=== PATIENT | male | born 1975 | race Caucasian/White ===

== ENCOUNTER 2016-11-06 10:41 | Emergency (ER) | payer SELFPAY ==
[2016-11-06] MEDS ORDERED: CATAPRES PO ONE (11:22)
[2016-11-06 11:28] LABS: Basophils % (Auto) 0.6 % (0.0-1.8); Eosinophils % (Auto) 0.7 % (0.0-4.3); Hematocrit 41.4 % (35.5-45.6); Hemoglobin 13.7 gm/dl (11.8-15.2); Mean Corpuscular HGB Conc 33 % (32-34); Mean Corpuscular Hemoglobin 28 pg (28-32); Mean Corpuscular Volume 86 fl (84-94); Platelet Count 252 K/mm3 (140-440); Red Blood Count 4.84 M/mm3 (3.65-5.03); Red Cell Distribution Width 15.2 % (13.2-15.2); White Blood Count 8.4 K/mm3 (4.5-11.0)
--- NOTE | 2016-11-06 11:37 | Emergency Department Report ---
HPI - General Chief Complaint: Overdose Time Seen by Provider: 11/06/16 11:21 - HPI HPI: This is a 40-year-old male who admits to cocaine use at 3 AM this morning approximately 9 hours ago, he presents to ED with severe headache. He states his headache is 10 out of 10, states that his pain is accompanied by nausea, dizziness and located mostly in the back of his head. He consumed 5 g of cocaine around 3 AM when the headache started, he stated home hoping that it would get better but it kept getting worse so he presented to the ED. Patient has not taking any medication at home for his symptoms. He denies any exacerbating factors. He denies any alleviating factors. -: Gradual Location: Back of head Radiation: Catholic area Migration to: no migration Severity scale (0 -10): 10 Quality: sharp Improves With: nothing Associated Symptoms: nausea, dizziness. ED Past Medical Hx - Past Medical History Previous Medical History?: Yes Hx Psychiatric Treatment: Yes (Bipolar) - Surgical History Past Surgical History?: No - Social History Smoking Status: Unknown if ever smoked Substance Use Type: Alcohol, Cocaine - Medications Home Medications: Home Medications Medication Instructions Recorded Confirmed Last Taken Type No Known Home Medications [No 11/06/16 11/06/16 Unknown History Reported Home Medications] ED Review of Systems ROS: Stated complaint: DRUG OVERDOSE Other details as noted in HPI Physical Exam - Physical Exam Vital Signs: Vital Signs 11/06/16 10:53 Temperature 98 F Pulse Rate 82 Respiratory 16 Rate Blood Pressure 145/104 O2 Sat by Pulse 100 Oximetry Physical Exam: - Physical Exam - General Limitations: No Limitations General appearance: alert, in no apparent distress, - Head Head exam: Present: atraumatic, normocephalic - Eye Eye exam: Present: normal appearance - ENT ENT exam: Present: mucous membranes moist - Neck Neck exam: Present: normal inspection - Respiratory Respiratory exam: Present: normal lung sounds bilaterally. Absent: respiratory distress - Cardiovascular Cardiovascular Exam: Present: normal rhythm, normal rate. Absent: systolic murmur, diastolic murmur, rubs, gallop - GI/Abdominal GI/Abdominal exam: Present: soft, normal bowel sounds - Extremities Exam Extremities exam: Present: normal inspection - Back Exam Back exam: Present: normal inspection - Neurological Exam Neurological exam: Present: alert, oriented X3 - Psychiatric Psychiatric exam: normal affect and mood but denies suicidal ideations, denies homicidal ideation - Skin Skin exam: Present: warm, dry, intact, normal color. Absent: rash ED Course Vital Signs 11/06/16 10:53 Temperature 98 F Pulse Rate 82 Respiratory 16 Rate Blood Pressure 145/104 O2 Sat by Pulse 100 Oximetry - Reevaluation(s) Reevaluation #1: 11/06/16 16:47 Spoke with patient he agreed to psych consultation, but refuses inpatient rehabilitation, was referred to outpatient treatment. Patient not sure if he really wants detox at this time we'll consider to outpatient rehabilitation/ treatment. A DC patient continued to deny homicidal ideations, suicidal ideations. ED Medical Decision Making - Lab Data Result diagrams: 11/06/16 11:18 11/06/16 11:18 Critical care attestation.: If time is entered above; I have spent that time in minutes in the direct care of this critically ill patient, excluding procedure time. ED Disposition Clinical Impression: Cocaine abuse Disposition: DC-01 TO HOME OR SELFCARE Is pt being admited?: No Does the pt Need Aspirin: No Condition: Stable Instructions: Cocaine Abuse (ED), Polysubstance Abuse (ED) Referrals: PRIMARY CARE, [Primary Care Provider] - 3-5 Days
[2016-11-06 11:49] LABS: Anion Gap 22 mmol/L; Blood Urea Nitrogen 13 mg/dL (9-20); Calcium 8.9 mg/dL (8.4-10.2); Carbon Dioxide 22 mmol/L (22-30); Chloride 100.4 mmol/L (98-107); Glucose 84 mg/dL (75-100); Potassium 4.1 mmol/L (3.6-5.0); Sodium 140 mmol/L (137-145)
--- NOTE | 2016-11-06 12:26 | Cat Scan Report ---
CT HEAD WITHOUT CONTRAST: HISTORY: Severe headache. Serial contiguous axial images were obtained through the cranium. Intravenous contrast material was not administered. The ventricles are normal in size and appearance. There is no mass effect or midline shift. No areas of abnormally increased or decreased attenuation are seen. No mass lesion is seen. The mastoid air cells and visualized portions of the sinuses are normal. IMPRESSION: Cranial CT scan within normal limits.
[2016-11-06 13:50] LABS: Bilirubin,Urine NEG (Negative); Blood,Urine NEG (Negative); Ketones,Urine NEG (Negative); Leukocyte Esterase,Urine NEG (Negative); Mucus,Urine FEW /HPF; Nitrite,Urine NEG (Negative); Protein,Urine <15 mg/dL mg/dL (Negative); Urobilinogen,Urine < 2.0 mg/dL (<2.0)
[2016-11-06 14:33] LABS: RBC,Urine < 1.0 /HPF (0.0-6.0)
[2016-11-06 18:14] VITALS: BP 135/77
== END 2016-11-06 17:40 | disposition home or self-care (01) ==
LOC: ED 10:41
DX: F14.10 Cocaine abuse, uncomplicated (principal); R51 Headache; R11.0 Nausea; R42 Dizziness and giddiness; F31.9 Bipolar disorder, unspecified
CPT/HCPCS: 36415; 70450; 80048; 81001; 84484; 85025; 93005; 93010

== ENCOUNTER 2017-01-09 09:10 | Emergency (ER) | payer SELFPAY ==
[2017-01-09 10:40] LABS: Basophils % (Auto) 0.6 % (0.0-1.8); Eosinophils % (Auto) 1.7 % (0.0-4.3); Hematocrit 46.3 % (35.5-45.6); Hemoglobin 15.2 gm/dl (11.8-15.2); Mean Corpuscular HGB Conc 33 % (32-34); Mean Corpuscular Hemoglobin 28 pg (28-32); Mean Corpuscular Volume 86 fl (84-94); Platelet Count 223 K/mm3 (140-440); Red Blood Count 5.36 M/mm3 (3.65-5.03); Red Cell Distribution Width 14.9 % (13.2-15.2)
[2017-01-09 11:01] LABS: Anion Gap 16 mmol/L; BUN/Creatinine Ratio 9; Blood Urea Nitrogen 10 mg/dL (9-20); Calcium 9.1 mg/dL (8.4-10.2); Carbon Dioxide 29 mmol/L (22-30); Chloride 99.4 mmol/L (98-107); Glucose 94 mg/dL (75-100); Potassium 4.9 mmol/L (3.6-5.0); Sodium 139 mmol/L (137-145)
[2017-01-09] MEDS ORDERED: CATAPRES ONE (14:02)
[2017-01-09] MEDS ORDERED: NACL 0.9% 1000 ML 1,000 ML IV ONE (14:16)
--- NOTE | 2017-01-09 14:25 | Emergency Department Report ---
- General Chief Complaint: Dizziness Stated Complaint: DIZZY Time Seen by Provider: 01/09/17 14:00 Source: patient, old records reviewed (when patient was here in October admitted to cocaine abuse) Mode of arrival: Stretcher Limitations: No Limitations - History of Present Illness Initial Comments: 41-year-old male with past history of bipolar disorder presents to the hospital complaints of URI symptoms with syncopal episode today. For the past 4 days patient has had generalized body aches, frontal sinus headache, nasal congestion , occasional cough, and fevers. Decreased appetite reported by patient states he is trying to eat and drink fluids appropriately. Patient thought he was getting better yesterday and no longer felt feverish. Today patient took some DayQuil and got on a bus. While in a bolus he began to feel nauseated and lightheaded. When he got up to sit down and had a syncopal episode. Patient complains of frontal sinus pain, chest pain with coughing, but denies shortness of breath, edema, recent travel, calf tenderness, or posterior or parietal headache. - Related Data Previous Rx's Medication Instructions Recorded Last Taken Type Doxycycline [Vibramycin CAP] 100 mg PO Q12HR #14 capsule 01/09/17 Unknown Rx Sodium Chloride [Saline Nasal 1 - 2 spray NS PRN PRN #1 bottle 01/09/17 Unknown Rx [place]] Allergies Allergy/AdvReac Type Severity Reaction Status Date / Time No Known Allergies Allergy Unverified 11/06/16 11:02 ED Review of Systems ROS: Stated complaint: DIZZY Other details as noted in HPI Comment: All other systems reviewed and negative Other: Constitutional: as per hpi Eyes: No eye pain visual changes or discharge ENT: No ear pain or throat pain Neck: Denies pain Respiratory: As per HPI Cardiovascular: Denies palpitations GI: Denies abdominal pain, nausea, vomiting : Denies dysuria Musculoskeletal: Denies back pain, joint swelling Skin: Denies rash, lesions, erythema Neurologic: Denies headache, numbness, weakness Psychiatric: Denies suicidal ideation, hallucinations ED Past Medical Hx - Past Medical History Hx Psychiatric Treatment: Yes (Bipolar) - Surgical History Past Surgical History?: Yes Additional Surgical History: APPENDIX REMOVED - Social History Smoking Status: Current Every Day Smoker Substance Use Type: Alcohol - Medications Home Medications: Home Medications Medication Instructions Recorded Confirmed Last Taken Type Doxycycline [Vibramycin CAP] 100 mg PO Q12HR #14 capsule 01/09/17 Unknown Rx Sodium Chloride [Saline Nasal 1 - 2 spray NS PRN PRN #1 bottle 01/09/17 Unknown Rx [place]] ED Physical Exam - General Limitations: No Limitations - Other Other exam information: General: No limitations, patient is alert in no acute distress Head exam: Atraumatic, normocephalic Eyes exam: Normal appearance, pupils equal reactive to light, extraocular movements intact ENT: Moist mucous membrane, normal oropharynx, no exudate. Left maxillary sinus tenderness Neck exam: Normal inspection, full range of motion, no meningismus nontender Respiratory exam: Clear to auscultation bilateral, no wheezes, rales, crackles Cardiovascular: Normal rate and rhythm, normal heart sounds Abdomen: Soft, nondistended, and nontender, with normal bowel sounds, no rebound, or guarding Extremity: Full range of motion normal inspection no deformity Back: Normal Inspection, full range of motion, no tenderness Neurologic: Alert, oriented x3, cranial nerves intact, no motor or sensory deficit Psychiatric: normal affect, normal mood Skin: Warm, dry, intact ED Course Vital Signs 01/09/17 01/09/17 01/09/17 09:59 14:38 15:00 Temperature 98.6 F Pulse Rate 67 56 L 58 L Respiratory 18 11 L 13 Rate Blood Pressure 124/84 125/81 132/83 O2 Sat by Pulse 96 100 99 Oximetry 01/09/17 01/09/17 15:30 16:00 Temperature Pulse Rate 52 L 52 L Respiratory 10 L 12 Rate Blood Pressure 149/96 136/87 O2 Sat by Pulse 98 100 Oximetry ED Medical Decision Making - Lab Data Result diagrams: 01/09/17 10:26 01/09/17 10:26 Lab Results 01/09/17 01/09/17 01/09/17 Range/Units 10:26 10:26 14:53 WBC 7.0 (4.5-11.0) K/mm3 RBC 5.36 H (3.65-5.03) M/mm3 Hgb 15.2 (11.8-15.2) gm/dl Hct 46.3 H (35.5-45.6) % MCV 86 (84-94) fl MCH 28 (28-32) pg MCHC 33 (32-34) % RDW 14.9 (13.2-15.2) % Plt Count 223 (140-440) K/mm3 Lymph % (Auto) 13.8 (13.4-35.0) % Armstrong % (Auto) 13.7 H (0.0-7.3) % Eos % (Auto) 1.7 (0.0-4.3) % Baso % (Auto) 0.6 (0.0-1.8) % Lymph # 1.0 L (1.2-5.4) K/mm3 Armstrong # 1.0 H (0.0-0.8) K/mm3 Eos # 0.1 (0.0-0.4) K/mm3 Baso # 0.0 (0.0-0.1) K/mm3 Seg Neutrophils % 70.2 H (40.0-70.0) % Seg Neutrophils # 4.9 (1.8-7.7) K/mm3 Sodium 139 (137-145) mmol/L Potassium 4.9 (3.6-5.0) mmol/L Chloride 99.4 (98-107) mmol/L Carbon Dioxide 29 (22-30) mmol/L Anion Gap 16 mmol/L BUN 10 (9-20) mg/dL Creatinine 1.1 (0.8-1.5) mg/dL Estimated GFR > 60 ml/min BUN/Creatinine Ratio 9 % Glucose 94 (75-100) mg/dL Calcium 9.1 (8.4-10.2) mg/dL Total Creatine Kinase (55-170) units/L Troponin T < 0.010 (0.00-0.029) ng/mL 01/09/17 Range/Units 14:53 WBC (4.5-11.0) K/mm3 RBC (3.65-5.03) M/mm3 Hgb (11.8-15.2) gm/dl Hct (35.5-45.6) % MCV (84-94) fl MCH (28-32) pg MCHC (32-34) % RDW (13.2-15.2) % Plt Count (140-440) K/mm3 Lymph % (Auto) (13.4-35.0) % Armstrong % (Auto) (0.0-7.3) % Eos % (Auto) (0.0-4.3) % Baso % (Auto) (0.0-1.8) % Lymph # (1.2-5.4) K/mm3 Armstrong # (0.0-0.8) K/mm3 Eos # (0.0-0.4) K/mm3 Baso # (0.0-0.1) K/mm3 Seg Neutrophils % (40.0-70.0) % Seg Neutrophils # (1.8-7.7) K/mm3 Sodium (137-145) mmol/L Potassium (3.6-5.0) mmol/L Chloride (98-107) mmol/L Carbon Dioxide (22-30) mmol/L Anion Gap mmol/L BUN (9-20) mg/dL Creatinine (0.8-1.5) mg/dL Estimated GFR ml/min BUN/Creatinine Ratio % Glucose (75-100) mg/dL Calcium (8.4-10.2) mg/dL Total Creatine Kinase 187 H (55-170) units/L Troponin T (0.00-0.029) ng/mL - EKG Data -: EKG Interpreted by Me EKG shows normal: sinus rhythm, axis (qrs 32), QRS complexes (86), ST-T waves ( normal) Rate: normal - EKG Data When compared to previous EKG there are: previous EKG unavailable - Radiology Data Radiology results: report reviewed (chest x-ray: No acute findings) - Medical Decision Making Patient felt better with ED treatment. Vital signs showed mild orthostasis with an increase in heart rate with standing. I suspect the patient has viral syndrome and sinusitis have resulted in decreased by mouth intake. Despite previous history of substance abuse patient denies recent cocaine or drug use. He'll be placed on antibiotics for sinusitis and discharged with follow-up - Differential Diagnosis dehydration, URI, sinusitis, viral syndrome, pneumonia Critical Care Time: No Critical care attestation.: If time is entered above; I have spent that time in minutes in the direct care of this critically ill patient, excluding procedure time. ED Disposition Clinical Impression: Sinusitis, Syncope, Dehydration, Elevated blood pressure reading Disposition: DC- TO HOME OR SELFCARE Is pt being admited?: No Does the pt Need Aspirin: No Condition: Stable Instructions: Syncope (ED), Sinusitis (ED), How to Take a Blood Pressure (ED) Additional Instructions: Take the medication as prescribed. Return if symptoms worsen. Continue to drink plenty of fluids. Continue to monitor and record your blood pressure daily and present your results to the follow up doctor or clinic to determine if you will require treatment blood pressure medication. Use the [facility] pharmacy coupon card provided to make your medications more affordable Prescriptions: Doxycycline [Vibramycin CAP] 100 mg PO Q12HR #14 capsule Sodium Chloride [Saline Nasal [place]] 1 - 2 spray NS PRN PRN #1 bottle PRN Reason: Nasal Congestion Referrals: [facility] [Provider Group] - 3-5 Days Time of Disposition: 17:04
--- NOTE | 2017-01-09 15:09 | XRay Report ---
Chest 2 views: History: Fever and cough. Findings: Normal cardiomediastinal silhouette. Trachea is midline. No consolidation, pneumothorax or pleural effusion. Impression: No acute cardiopulmonary findings.
[2017-01-09 16:28] VITALS: BP 136/87
== END 2017-01-09 19:08 | disposition home or self-care (01) ==
LOC: ED 09:10
DX: J32.0 Chronic maxillary sinusitis (principal); R55 Syncope and collapse; E86.0 Dehydration; R03.0 Elevated blood-pressure reading, without diagnosis of hypertension; F17.210 Nicotine dependence, cigarettes, uncomplicated
CPT/HCPCS: 36415; 71020; 80048; 82550; 84484; 85025; 93005; 93010; 96360; 99284; J7030